=== PATIENT | female | born 1975 | race Caucasian/White ===

== ENCOUNTER 2016-05-26 18:49 | Inpatient (IN) ==
[2016-05-26] MEDS ORDERED: *HR* LORazepam 2 MG/ML VIAL IM PRN ×2 (20:57→21:04)
[2016-05-26] MEDS ORDERED: Haloperidol Lactate 5 MG/ML VIAL IM PRN (20:57)
[2016-05-26] MEDS ORDERED: Mag Hydrox/Al Hydrox/Simeth 30 ML UDC PO PRN (20:57)
[2016-05-26] MEDS ORDERED: Ibuprofen 400 MG TABLET PO PRN (20:57)
[2016-05-26] MEDS ORDERED: MOM Conc 10 ML UD.LIQ PO PRN (20:57)
[2016-05-26] MEDS ORDERED: hydrOXYzine pamoate 25 MG CAPSULE PO PRN (20:57)
[2016-05-26] MEDS ORDERED: *HR* LORazepam 1 MG TABLET PO PRN (21:04)
[2016-05-26] MEDS: Divalproex (12 HR) 500 MG TABLET PO SCH (22:15)
[2016-05-26] MEDS: Nicotine 21 MG PATCH.TD24 TD SCH (22:15)
[2016-05-26] MEDS: traZODone 50 MG TABLET PO PRN (22:15)
[2016-05-26] MEDS: (Loxapine Succinate [Loxapine] 25 MG) PO SCH (22:22)
[2016-05-27] MEDS: Nicotine 21 MG PATCH.TD24 TD SCH (08:56)
[2016-05-27] MEDS: Divalproex (12 HR) 500 MG TABLET PO SCH ×2 (08:57→20:30)
[2016-05-27] MEDS: Vitamin B Complex/Vit C/Vit E 1 EACH TABLET PO SCH (08:57)
[2016-05-27] MEDS: (Loxapine Succinate [Loxapine] 25 MG) PO SCH ×2 (08:58→20:31)
--- NOTE | 2016-05-27 10:50 | Psychiatry History & Physical ---
Date of Encounter: 05/27/16 Time of Encounter: 10:48 History of Present Illness Patient Stated Chief Complaint: "i am seeing ghosts" Medicare Admission Attestation: For traditional Medicare patients the provided hospital inpatient services are reasonable and necessary and in the case of services not specified as inpatient -only under 42 CFR 419.22 (n), that they are appropriately provided as inpatient services in accordance 42 CFR 412.3. For Critical Access Hospital the patient may reasonably be expected to be discharged or transferred to a hospital within 96 hours after admission to the Critical Access Hospital. History of Present Illness: Ms. Montague is a 40 year old female with schizoaffective disorder, bipolar type. Pt is a very poor historian. Her records patient has been having auditory hallucinations of seeing shadows. She admits that she has not been taking her medications and has become very delusional she does not feel safe thinks that there are individuals in her home. She had presented to the hospital a few days prior to be seen but did not calm and at that time and per records she thought people were hiding in the events of her house and talking about her as a result it was attempted to get her to be seen and evaluated but she refused and went home. On evaluation with pt she reports that she is seeing "evil ghosts" she reports this started a "couple days ago, its like a higher power". Pt reports "i have a guilty conscious about what i have done". reports she hasn't been faithful as she hasn't been good. She then goes on to say that "i guess its the things i am seeing". current meds per pt: cogentin depakote "sleeping meds" Past Med Surg Social Fam HX - Past Medical History Medical history: COPD - Past Psychiatric History Psychiatric history: Reports: bipolar, schizophrenia, previous psychiatric hospitalization Past psychiatric history details: outpatient psychiatrist: carol diaz last saw her "been awhile" inpatient hospitalizations: 3 times, last time 2 weeks ago [facility]: denies Past meds: depakote, risperdal, allergic to seroquel - Past Surgical History Surgical History: other - Social History Smoking Status: Current every day smoker Smokeless Tobacco Status: No Alcohol use: none, occasionally Drug use: none Occupational status: disabled Current living situation: Home Activity Level: Independent ambulation Recent Out of Country Travel Within the Last 8 Weeks: No Exposure or Possible Exposure to Illness During Travel: No Medications & Allergies Divalproex (12 HR) [Depakote (12 HR)] 500 mg PO BID 05/26/16 [History] Loxapine Succinate [Loxapine] 25 mg PO BID 05/26/16 [History] Melatonin 3 mg PO HS 05/26/16 [History] OLANZapine [Olanzapine] 20 mg PO HS 05/26/16 [History] Paliperidone Palmitate [Invega Sustenna] 156 mg IJ Q4W 05/26/16 [History] Allergies quetiapine [From Seroquel] Adverse Reaction (Verified 04/17/16 14:28) Hallucinating steroids Allergy (Uncoded 04/17/16 14:28) See Comments Mental Status Exam Patient orientation: Yes Person, Yes Time, Yes Place, Yes Circumstance Level of alertness: Alert Patient appearance: Well Groomed Behavior: nervous, anxious, restless, guarded, suspicious, fearful, distractible Eye contact: Prolonged Contact Mood description: Anxious, Labile Affect description: blunted Speech pattern: Slowed, Delayed, Disorganized, Inappropriate to situation, Monotone Speech volume: Whispering Thought process: Loose Associations, Thought Blocking, Disorganized Thought content: Yes Preoccupation, Yes Paranoid delusion Perceptual disturbances: Yes Visual hallucinations Attention span: Capable of Focused Attention, Capable of Sustained Attention Intelligence estimate: Average Judgment: Poor Insight: Minimal Results - Vital Signs Vital signs: Temp Pulse Resp BP 98.4 F 94 18 110/77 05/27/16 09:00 05/27/16 09:00 05/27/16 09:00 05/27/16 09:00 Assessment and Plan (1) Schizoaffective disorder, bipolar type Current visit: Yes Status: Acute Plan: Admit inpatient for safety and stabilization, Close observation, Encourage participation in unit milieu, Group Therapy, Monitor sleep, Monitor appetite Additional Plan: 05/27: restart home meds. get VPA level, will start cogentin for prevention of EPS sx's will monitor Risks, benefits, side effects, alternatives discussed w/pt: Yes Patient agreeable to treatment: Yes Plans for Post Hospital Care: Home
[2016-05-27] MEDS: traZODone 50 MG TABLET PO PRN (20:30)
[2016-05-27] MEDS: Melatonin 3 MG TABLET PO SCH (20:30)
[2016-05-27] MEDS: OLANZapine 10 MG TAB.RAPDIS PO SCH (20:30)
[2016-05-28] MEDS: Nicotine 21 MG PATCH.TD24 TD SCH (09:26)
[2016-05-28] MEDS: Vitamin B Complex/Vit C/Vit E 1 EACH TABLET PO SCH (09:27)
[2016-05-28] MEDS: Divalproex (12 HR) 500 MG TABLET PO SCH ×2 (09:27→21:01)
[2016-05-28] MEDS: (Loxapine Succinate [Loxapine] 25 MG) PO SCH ×2 (09:28→21:03)
--- NOTE | 2016-05-28 09:35 | Psychiatry Progress Note ---
Date of Encounter: 05/28/16 Time of Encounter: 09:35 Subjective Interval history: Patient seen and evaluated this morning. Patient did not come to see this provider and office of this provider went to patient's room. On approach patient was laying in bed with eyes open. Patient reports that she is still having ongoing issues with having "bad thoughts" and reports she does not know why and continued to exhibit thought blocking and was seen able to be a good historian patient reports no issues with sleep patient has been medication compliant patient was just restarted back on her Zyprexa last night seems as though patient has been noncompliant with medications will continue the Zyprexa for now. Review of Systems Psychiatric: Reports: depression, anxiety, abnormal sleep pattern, suicidal ideation, change in appetite, visual hallucinations, anhedonia, confusion, difficulty concentrating, mood swings Objective: Exam Patient orientation: Yes Person, Yes Time, Yes Place, Yes Circumstance Level of alertness: Alert Patient appearance: Well Groomed Behavior: nervous, anxious, restless, guarded, suspicious, fearful, distractible Eye contact: Prolonged Contact Mood description: Anxious, Labile Affect description: blunted Speech pattern: Slowed, Delayed, Disorganized, Inappropriate to situation, Monotone Speech volume: Whispering Thought process: Loose Associations, Thought Blocking, Disorganized Thought content: Yes Preoccupation, Yes Paranoid delusion Perceptual disturbances: Yes Visual hallucinations Judgment: Poor Insight: Minimal Results - Vital Signs Vital Signs: Temp Pulse Resp BP 98.0 F 78 16 120/81 05/27/16 21:00 05/27/16 21:00 05/27/16 21:00 05/27/16 21:00 Assessment and Plan (1) Schizoaffective disorder, bipolar type Current visit: Yes Status: Acute Additional Plan: 05/28: continue meds. pt had been noncompliant with meds on admission, just restarted yest 05/27: restart home meds. get VPA level, will start cogentin for prevention of EPS sx's will monitor Risks, benefits, side effects, alternatives discussed w/pt: Yes Patient agreeable to treatment: Yes
[2016-05-28] MEDS: *HR* LORazepam 1 MG TABLET PO PRN (12:16)
[2016-05-28] MEDS: OLANZapine 10 MG TAB.RAPDIS PO SCH (21:01)
[2016-05-28] MEDS: Melatonin 3 MG TABLET PO SCH (21:01)
[2016-05-29] MEDS: Divalproex (12 HR) 500 MG TABLET PO SCH ×2 (08:57→21:24)
[2016-05-29] MEDS: Nicotine 21 MG PATCH.TD24 TD SCH (08:57)
[2016-05-29] MEDS: (Loxapine Succinate [Loxapine] 25 MG) PO SCH (08:58)
[2016-05-29] MEDS: Vitamin B Complex/Vit C/Vit E 1 EACH TABLET PO SCH (08:58)
--- NOTE | 2016-05-29 13:14 | Psychiatry Progress Note ---
Date of Encounter: 05/29/16 Time of Encounter: 13:14 Subjective Interval history: Patient is seen for follow-up. Nursing staff report she is having visual hallucinations and paranoia and believes the medication is causing her hallucination. She talks about ghosts and deserving the penalty because she is a bad person. She asked me to review her medication and take off medication that cause her hallucinations. Review of Systems Psychiatric: Reports: depression, anxiety, abnormal sleep pattern, suicidal ideation, change in appetite, visual hallucinations, anhedonia, confusion, difficulty concentrating, mood swings Objective: Exam Patient orientation: Yes Person, Yes Time, Yes Place, Yes Circumstance Level of alertness: Alert Patient appearance: Well Groomed Behavior: cooperative, nervous, anxious, restless, guarded, suspicious, fearful , distractible Psychomotor activity: Normal Eye contact: Prolonged Contact Mood description: Anxious, Labile Affect description: blunted, anxious Speech pattern: Slowed, Delayed, Disorganized, Inappropriate to situation, Monotone Speech volume: Whispering Thought process: Loose Associations, Thought Blocking, Disorganized Thought content: Yes Preoccupation, Yes Paranoid delusion Perceptual disturbances: Yes Visual hallucinations Judgment: Poor Insight: Minimal Results - Vital Signs Vital Signs: Temp Pulse Resp BP 99 F 99 16 111/71 05/29/16 09:00 05/29/16 09:00 05/29/16 09:00 05/29/16 09:00 Assessment and Plan (1) Schizoaffective disorder, bipolar type Current visit: Yes Status: Acute Plan: Continue hospitalization, Close observation, Suicide Precautions per unit protocol, Encourage participation in unit milieu, Group Therapy, Monitor sleep, Monitor appetite Additional Plan: will order Depakote level and Haldol 5 mg by mouth twice a day. Risks, benefits, side effects, alternatives discussed w/pt: Yes Patient agreeable to treatment: Yes
[2016-05-29] MEDS: *HR* LORazepam 1 MG TABLET PO PRN (13:16)
[2016-05-29] MEDS: OLANZapine 10 MG TAB.RAPDIS PO SCH (21:24)
[2016-05-29] MEDS: Melatonin 3 MG TABLET PO SCH (21:25)
[2016-05-30] MEDS: Divalproex (12 HR) 500 MG TABLET PO SCH ×2 (08:42→20:55)
[2016-05-30] MEDS: Nicotine 21 MG PATCH.TD24 TD SCH (08:42)
[2016-05-30] MEDS: Vitamin B Complex/Vit C/Vit E 1 EACH TABLET PO SCH (08:42)
--- NOTE | 2016-05-30 13:15 | Psychiatry Progress Note ---
Date of Encounter: 05/30/16 Time of Encounter: 13:12 Subjective Interval history: Patient seen for follow-up. I review nursing notes and social work notes. Patient's mother reported to nursing staff that patient drink alcohol frequently and forget to take her medication as prescribed. Patient is responding to medication changes from doxepin to Haldol. Her Depakote level is low at 34. She reported this visual hallucinations but experiencing olfactory hallucination, smelling of ashes. The plan would be to maintain her on Haldol Decanoate's if she improves on oral Haldol. She denied any suicidal ideation. Review of Systems Psychiatric: Reports: depression, anxiety, abnormal sleep pattern, suicidal ideation, change in appetite, visual hallucinations, confusion, difficulty concentrating, mood swings Objective: Exam Patient orientation: Yes Person, Yes Time, Yes Place, Yes Circumstance Level of alertness: Alert Patient appearance: Appropriate, Well Groomed Behavior: cooperative, nervous, anxious, restless, guarded, suspicious, fearful , distractible Psychomotor activity: Normal Eye contact: Maintains Eye Contact Mood description: Anxious, Labile Affect description: blunted, anxious Speech pattern: Disorganized, Repetitive, Impoverished Speech volume: Whispering Thought process: Loose Associations, Thought Blocking, Disorganized Thought content: Yes Preoccupation, Yes Paranoid delusion Perceptual disturbances: Yes Visual hallucinations, Yes Olfactory hallucinations Judgment: Poor Insight: Minimal Results - Vital Signs Vital Signs: Temp Pulse Resp BP 98.8 F 84 16 112/78 05/30/16 09:00 05/30/16 09:00 05/30/16 09:00 05/30/16 09:00 - Labs Labs: Laboratory Results - last 24 hr 05/29/16 15:58 Valproic Acid 35.49 L Assessment and Plan (1) Schizoaffective disorder, bipolar type Current visit: Yes Status: Acute Plan: Continue hospitalization, Close observation, Suicide Precautions per unit protocol, Encourage participation in unit milieu, Group Therapy, Monitor sleep, Monitor appetite Risks, benefits, side effects, alternatives discussed w/pt: Yes Patient agreeable to treatment: Yes Consult Discharge Plan - Plan Referrals: NO,PCP [Primary Care Provider] -
[2016-05-30] MEDS: OLANZapine 10 MG TAB.RAPDIS PO SCH (20:54)
[2016-05-30] MEDS: Melatonin 3 MG TABLET PO SCH (20:55)
[2016-05-31] MEDS: Vitamin B Complex/Vit C/Vit E 1 EACH TABLET PO SCH (09:19)
[2016-05-31] MEDS: Divalproex (12 HR) 500 MG TABLET PO SCH ×2 (09:19→20:39)
[2016-05-31] MEDS: Nicotine 21 MG PATCH.TD24 TD SCH (09:19)
--- NOTE | 2016-05-31 13:29 | Psychiatry Progress Note ---
Date of Encounter: 05/31/16 Time of Encounter: 13:10 Subjective Interval history: Patient is here for follow-up. Nursing and social work notes reviewed. Patient reports she is having less visual hallucinations ,less paranoia. She did acknowledge that alcohol and smoking and caffeine can affect her medication. She denies suicidal ideation and denies any side effects from medication. Review of Systems Psychiatric: Reports: depression, anxiety, suicidal ideation, visual hallucinations, confusion, difficulty concentrating, mood swings Objective: Exam Patient orientation: Yes Person, Yes Time, Yes Place, Yes Circumstance Level of alertness: Alert Patient appearance: Appropriate, Well Groomed Behavior: cooperative, nervous, anxious, restless, guarded, suspicious, fearful , distractible Psychomotor activity: Normal Eye contact: Maintains Eye Contact Mood description: Anxious, Labile Affect description: blunted, anxious Speech pattern: Disorganized, Repetitive, Impoverished Speech volume: Whispering Thought process: Thought Blocking Thought content: Yes Preoccupation, Yes Paranoid delusion Perceptual disturbances: Yes Visual hallucinations, Yes Olfactory hallucinations Judgment: Poor Insight: Minimal Results - Vital Signs Vital Signs: Temp Pulse Resp BP 98.3 F 84 16 109/77 05/31/16 09:00 05/31/16 09:00 05/31/16 09:00 05/31/16 09:00 - Drug Levels and Toxicology Drug Levels and Toxicology: Depakote level is 35, below therapeutic. Assessment and Plan (1) Schizoaffective disorder, bipolar type Current visit: Yes Status: Acute Plan: Continue hospitalization, Close observation, Suicide Precautions per unit protocol, Encourage participation in unit milieu, Group Therapy, Monitor sleep, Monitor appetite Risks, benefits, side effects, alternatives discussed w/pt: Yes Patient agreeable to treatment: Yes Consult Discharge Plan - Plan Referrals: NO,PCP [Primary Care Provider] -
[2016-05-31] MEDS: OLANZapine 10 MG TAB.RAPDIS PO SCH (20:39)
[2016-05-31] MEDS: Melatonin 3 MG TABLET PO SCH (20:39)
[2016-06-01] MEDS: Divalproex (12 HR) 500 MG TABLET PO SCH ×2 (08:39→20:46)
[2016-06-01] MEDS: Nicotine 21 MG PATCH.TD24 TD SCH (08:39)
[2016-06-01] MEDS: Vitamin B Complex/Vit C/Vit E 1 EACH TABLET PO SCH (08:39)
[2016-06-01] MEDS: Acetaminophen 325 MG TABLET PO PRN (13:26)
--- NOTE | 2016-06-01 13:52 | Psychiatry Progress Note ---
Date of Encounter: 06/01/16 Time of Encounter: 13:48 Subjective Interval history: Patient is here for follow-up. Nursing and social work notes reviewed. Patient continued to experience visual and olfactory hallucinations, continues to have confucianist preoccupation. Requests for hearing was submitted to probate court to continue hospitalization and complete stabilization. Review of Systems Psychiatric: Reports: depression, anxiety, suicidal ideation, visual hallucinations, confusion, difficulty concentrating, mood swings Objective: Exam Patient orientation: Yes Person, Yes Time, Yes Place, Yes Circumstance Level of alertness: Alert Patient appearance: Appropriate, Well Groomed Behavior: cooperative, nervous, anxious, tearful, restless, guarded, suspicious , fearful, distractible Psychomotor activity: Normal Eye contact: Maintains Eye Contact Mood description: Anxious, Labile Affect description: blunted, anxious Speech pattern: Disorganized, Repetitive, Impoverished Speech volume: Whispering Thought process: Thought Blocking, Disorganized Thought content: Yes Ideas of reference, Yes Preoccupation, Yes Paranoid delusion, Yes Religion delusion, Yes Obsessive thoughts Perceptual disturbances: Yes Visual hallucinations, Yes Olfactory hallucinations Judgment: Poor Insight: Minimal Results - Vital Signs Vital Signs: Temp Pulse Resp BP 97.8 F 83 20 106/76 06/01/16 09:00 06/01/16 09:00 06/01/16 09:00 06/01/16 09:00 Assessment and Plan (1) Schizoaffective disorder, bipolar type Current visit: Yes Status: Acute Plan: Continue hospitalization, Close observation, Suicide Precautions per unit protocol, Encourage participation in unit milieu, Group Therapy, Monitor sleep, Monitor appetite Additional Plan: Will add Zoloft 50 mg to help with depressive symptoms also we will increase Haldol to 10 mg twice daily to improve patient's response. We will continue to monitor. Risks, benefits, side effects, alternatives discussed w/pt: Yes Patient agreeable to treatment: Yes Consult Discharge Plan - Plan Referrals: NO,PCP [Primary Care Provider] -
[2016-06-01] MEDS: OLANZapine 10 MG TAB.RAPDIS PO SCH (20:46)
[2016-06-01] MEDS: Melatonin 3 MG TABLET PO SCH (20:46)
[2016-06-02] MEDS: Nicotine 21 MG PATCH.TD24 TD SCH (09:05)
[2016-06-02] MEDS: Vitamin B Complex/Vit C/Vit E 1 EACH TABLET PO SCH (09:06)
[2016-06-02] MEDS: Divalproex (12 HR) 500 MG TABLET PO SCH ×2 (09:06→20:49)
--- NOTE | 2016-06-02 12:07 | Psychiatry Progress Note ---
Date of Encounter: 06/02/16 Time of Encounter: 12:35 Subjective Interval history: Patient is here for follow-up. Staff report that she is seclusive most of the time. She participates in some activities, she continued to be suspicious and paranoid and confused. She is compliant with medication and still reports visual and olfactory hallucinations but this frequent. She tells me I wanted to be confident. Review of Systems Psychiatric: Reports: depression, anxiety, suicidal ideation, visual hallucinations, confusion, difficulty concentrating, mood swings Objective: Exam Patient orientation: Yes Person, Yes Time, Yes Place, Yes Circumstance Level of alertness: Alert Patient appearance: Appropriate, Well Groomed Behavior: cooperative, nervous, anxious, tearful, restless, guarded, suspicious , fearful, distractible Psychomotor activity: Normal Eye contact: Maintains Eye Contact Mood description: Depressed, Anxious, Labile Affect description: blunted, anxious Speech pattern: Disorganized, Repetitive, Impoverished Speech volume: Whispering Thought process: Thought Blocking, Disorganized Thought content: Yes Ideas of reference, Yes Preoccupation, Yes Paranoid delusion, Yes Pentecostalism delusion, Yes Obsessive thoughts Perceptual disturbances: Yes Visual hallucinations, Yes Olfactory hallucinations Judgment: Poor Insight: Minimal Results - Vital Signs Vital Signs: Temp Pulse Resp BP 97.8 F 87 16 118/74 06/02/16 09:00 06/02/16 09:00 06/02/16 09:00 06/02/16 09:00 Assessment and Plan (1) Schizoaffective disorder, bipolar type Current visit: Yes Status: Acute Plan: Continue hospitalization, Close observation, Suicide Precautions per unit protocol, Encourage participation in unit milieu, Group Therapy, Monitor sleep, Monitor appetite Risks, benefits, side effects, alternatives discussed w/pt: Yes Patient agreeable to treatment: Yes Consult Discharge Plan - Plan Referrals: Fermin Newman [facility] [place] [Outside] - 06/12/16 10:00 am (The above appointment is with Marnie. You will also see Karime Contreras the same day, 2016 at 10:30am.)
[2016-06-02] MEDS: OLANZapine 10 MG TAB.RAPDIS PO SCH (20:50)
[2016-06-02] MEDS: Melatonin 3 MG TABLET PO SCH (20:50)
[2016-06-02] MEDS: Acetaminophen 325 MG TABLET PO PRN (23:08)
[2016-06-03] MEDS: Vitamin B Complex/Vit C/Vit E 1 EACH TABLET PO SCH (08:42)
[2016-06-03] MEDS: Divalproex (12 HR) 500 MG TABLET PO SCH ×2 (08:42→20:52)
[2016-06-03] MEDS: Nicotine 21 MG PATCH.TD24 TD SCH (08:42)
--- NOTE | 2016-06-03 11:59 | Psychiatry Progress Note ---
Date of Encounter: 06/03/16 Time of Encounter: 09:00 Subjective Interval history: Patient seen today for follow-up of psychosis with paranoia and mood lability. She does appear more organized today and is able to communicate with staff to get her needs met. However, when attempting to discuss the patient's illness with her she continues to be evasive and guarded. She does admit to being paranoid and confused upon arrival to the hospital. However, discussing her medications, the patient reports "they are just practicing medicine." She goes on to state that she has "a lot of medicines at home too." She does state that she will take her meds when she leaves the hospital but she could not verbalize why this is important. Patient does live alone. At that point she goes on to talk about how "I have been a bad person and I need to atone for my poor character." She reports sleeping well. She is not aware of any side effects of her current meds. She has been more cooperative and appropriate with staff on the unit. Review of Systems Psychiatric: Reports: depression, anxiety, confusion, difficulty concentrating, irritability, mood swings. Denies: suicidal ideation, visual hallucinations Objective: Exam Patient orientation: Yes Person, Yes Time, Yes Place, Yes Circumstance Level of alertness: Alert Patient appearance: Appropriate, Well Groomed Behavior: restless, guarded, distractible Psychomotor activity: Normal Eye contact: Maintains Eye Contact Mood description: Euthymic/stable Affect description: blunted, flat, incongruent with mood Speech pattern: Slowed, Repetitive, Impoverished Speech volume: Normal Thought process: Slowed Thinking Thought content: No Suicidal ideation, No Homicidal ideation, Yes Ideas of reference, Yes Paranoid delusion Perceptual disturbances: Yes Auditory hallucinations Judgment: Poor Insight: Minimal Results - Vital Signs Vital Signs: Temp Pulse Resp BP 97.4 F L 87 16 99/71 06/03/16 09:00 06/03/16 09:00 06/03/16 09:00 06/03/16 09:00 Assessment and Plan (1) Schizoaffective disorder, bipolar type Current visit: Yes Status: Acute Plan: Continue hospitalization, Close observation, Suicide Precautions per unit protocol, Encourage participation in unit milieu, Group Therapy, Monitor sleep, Monitor appetite Additional Plan: Patient is currently taking: Haldol and Zyprexa as well as Zoloft. She does appear to be doing well in terms of her symptoms although she still has some paranoia and is very guarded. We will hold on adding more medications for now and consider cross titrating so that she is not on 2 antipsychotics. Continue to monitor sleep and appetite and her interaction with peers and staff. At this point patient does have a probate hearing scheduled. If she continues to improve consider discharge prior to that. Risks, benefits, side effects, alternatives discussed w/pt: Yes Patient agreeable to treatment: Yes Consult Discharge Plan - Plan Referrals: Fermin Sainz [Outside] - 06/12/16 10:00 am (The above appointment is with Marnie. You will also see Karime Contreras the same day, 2016 at 10:30am.)
[2016-06-03] MEDS: Acetaminophen 325 MG TABLET PO PRN (14:52)
[2016-06-03] MEDS: Melatonin 3 MG TABLET PO SCH (20:51)
[2016-06-03] MEDS: OLANZapine 10 MG TAB.RAPDIS PO SCH (20:52)
[2016-06-04] MEDS: Divalproex (12 HR) 500 MG TABLET PO SCH (08:26)
[2016-06-04] MEDS: Nicotine 21 MG PATCH.TD24 TD SCH (08:27)
[2016-06-04] MEDS: Vitamin B Complex/Vit C/Vit E 1 EACH TABLET PO SCH (08:27)
[2016-06-04 09:02] VITALS: BP 103/73
--- NOTE | 2016-06-04 13:18 | Discharge Summary ---
Date of Encounter: 06/04/16 Time of Encounter: 12:00 Diagnosis - Discharge Diagnosis (1) Schizoaffective disorder, bipolar type Priority: Primary Status: Acute Medications - Discharge Medications Prescriptions: Divalproex (12 HR) [Depakote (12 HR)] 500 mg PO BID #60 tablet. Melatonin 3 mg PO HS #30 tablet OLANZapine [Zyprexa Zydis] 20 mg PO HS #60 tab.rapdis Sertraline [Zoloft] 50 mg PO DAILY #30 tablet Divalproex (12 HR) [Depakote (12 HR)] 500 mg PO BID #60 tablet. 06/04/16 [Rx] Melatonin 3 mg PO HS #30 tablet 06/04/16 [Rx] OLANZapine [Zyprexa Zydis] 20 mg PO HS #60 tab.rapdis 06/04/16 [Rx] Sertraline [Zoloft] 50 mg PO DAILY #30 tablet 06/04/16 [Rx] Vitamin B Complex/Vit C/Vit E [Stresstab] 1 each PO DAILY tablet 06/04/16 [Rx] Allergies quetiapine [From Seroquel] Adverse Reaction (Verified 04/17/16 14:28) Hallucinating steroids Allergy (Uncoded 04/17/16 14:28) See Comments Results Procedures and tests throughout hospitalization: Completed Lab Orders Category Date Time Status Valproate Routine Lab 05/29/16 15:58 Completed Provider Date of admission: 05/26/16 18:49 Primary care physician: PCP NO Consults: 05/26/16 19:13 Consult to Pastoral Services [CONS] Routine Comment: Discharging clinician: Odessa Fermin Assessment and Plan - Patient/Caregiver Discharge Instructions Activity: resume usual activities as tolerated Diet: regular diet - Follow up Plan Follow up with: Fermin Sainz [Outside] - 06/12/16 10:00 am (The above appointment is with Marnie. You will also see Karime Contreras the same day, 2016 at 10:30am.) Functional capacity at discharge: independent ambulation Overall status at discharge: Stable Disposition: Home, Self-Care Hospital Course Hospital course: Ms. Montague is a 40 year old female with history of schizoaffective disorder who presented to the hospital psychotic and paranoid. She was admitted for psychiatric stabilization. Patient was incorporated into the therapeutic milieu and offer group and individual as well as recreational therapy. She was placed on suicide precautions and close observation per unit protocol. Patient was restarted on Depakote 500 mg by mouth twice a day. She was also placed on Zyprexa and titrated up to 20 mg by mouth daily. Throughout the course of the hospital stay the patient's mood did stabilize. She started to show improvement in her thought content and her organization. Patient did have a little bit of trouble understanding why she needed the medication. However, patient did note that she started to have able. Since she took her medicine. We discussed that the patient should probably dispose of her previous prescription so he does not get confusing. We also discussed that patient should not be using drugs or alcohol while taking her psychiatric medications. Patient has been able to verbalize needs to staff and she reports she is sleeping better. Staff did contact patient's mother who reported that the patient is back to baseline. At the time of discharge patient denied suicidal or homicidal ideation, intent, or plan. She did not appear to be responding to internal stimuli. She denied obsessions, delusions, paranoia. She is going to follow up with her outpatient provider and continue meds as prescribed. She is discharged in stable condition. Does patient wish to continue nicotine replacement upon disc: No - Time Spent with Patient Total time spent providing and/or coordinating discharge services: Greater than 30 minutes Quality - Multiple Antipsychotics Patient discharged on 2 or more antipsychotic medications: No Procedures - Procedures Procedures: Medication Management, Crisis Stabilization, Supportive Therapy, Group Therapy, Psychoeducational Therapy Mental Status Exam - Mental Status Exam Patient orientation: Yes Person, Yes Time, Yes Place, Yes Circumstance Level of alertness: Alert Patient appearance: Appropriate, Well Groomed Behavior: calm, cooperative Psychomotor activity: Normal Eye contact: Maintains Eye Contact Mood description: Euthymic/stable Affect description: congruent with mood Speech pattern: Normal rate, Normal rhythm, Normal tone Speech Volume: Normal Thought process: Intact Thought Content: No Suicidal ideation, No Homicidal ideation Perceptual Disturbances: No Auditory hallucinations, No Visual hallucinations Judgment: Limited Insight: Partial
== END 2016-06-04 14:40 | disposition home or self-care (01) | DRG 885 ==
LOC: 1ANU 18:49 → SUATTDRO 18:49 → 1ANU 19:39
PROVIDERS: ADMIT Psychiatry & Neurology Psychiatry; ATTEND Psychiatry & Neurology Psychiatry

== ENCOUNTER 2019-12-20 01:46 | Inpatient (IN) ==
[2019-12-20] MEDS ORDERED: *HR* LORazepam 1 MG TABLET PO PRN (03:25)
[2019-12-20] MEDS ORDERED: Haloperidol Lactate 5 MG/ML VIAL IM PRN (03:25)
[2019-12-20] MEDS ORDERED: haloperidoL 5 MG TABLET PO PRN (03:25)
[2019-12-20] MEDS ORDERED: QUEtiapine Fumarate 25 MG TABLET PO PRN (03:25)
[2019-12-20] MEDS ORDERED: MOM Conc 10 ML UD.LIQ PO PRN (03:25)
[2019-12-20] MEDS ORDERED: Acetaminophen 325 MG TABLET PO PRN (03:25)
[2019-12-20] MEDS ORDERED: PALIPERIDONE PALMITATE 156 MG/ML SYRINGE IM SCH (03:45)
[2019-12-20] MEDS ORDERED: *HR* LORazepam 2 MG/ML VIAL IM PRN (04:00)
[2019-12-20] MEDS: Nicotine 21 MG PATCH.TD24 TD SCH (09:30)
[2019-12-21] MEDS: hydrOXYzine pamoate 25 MG CAPSULE PO PRN (02:09)
[2019-12-21] MEDS: Nicotine 21 MG PATCH.TD24 TD SCH ×2 (08:53→13:45)
[2019-12-21] MEDS: haloperidoL 5 MG TABLET PO SCH (20:23)
[2019-12-21] MEDS ORDERED: traZODone 50 MG TABLET PO PRN (20:28)
[2019-12-22] MEDS: Nicotine 21 MG PATCH.TD24 TD SCH (08:49)
[2019-12-22] MEDS: haloperidoL 5 MG TABLET PO SCH (20:13)
[2019-12-23] MEDS: hydrOXYzine pamoate 25 MG CAPSULE PO PRN (00:39)
[2019-12-23] MEDS: Nicotine 21 MG PATCH.TD24 TD SCH (09:01)
[2019-12-23 09:34] VITALS: BP 120/79
== END 2019-12-23 12:05 | disposition home or self-care (01) | DRG 885 ==
LOC: EMEROOARM 01:46 → 1ANU 03:23 → SUATTDRO 03:23 → 1ANU 04:18
PROVIDERS: ADMIT Psychiatry & Neurology Psychiatry; ATTEND Psychiatry & Neurology Forensic Psychiatry

== ENCOUNTER 2020-01-07 14:45 | Inpatient (IN) ==
[2020-01-07] MEDS ORDERED: Ibuprofen 800 MG TABLET PO PRN (16:16)
[2020-01-07] MEDS ORDERED: MOM Conc 10 ML UD.LIQ PO PRN (16:18)
[2020-01-07] MEDS ORDERED: haloperidoL 5 MG TABLET PO PRN (16:18)
[2020-01-07] MEDS ORDERED: traZODone 50 MG TABLET PO PRN (16:18)
[2020-01-07] MEDS ORDERED: Haloperidol Lactate 5 MG/ML VIAL IM PRN (16:18)
[2020-01-07] MEDS ORDERED: hydrOXYzine pamoate 25 MG CAPSULE PO PRN (16:18)
[2020-01-07] MEDS ORDERED: Acetaminophen 325 MG TABLET PO PRN (16:18)
[2020-01-07] MEDS ORDERED: *HR* LORazepam 2 MG/ML VIAL IM PRN (16:18)
[2020-01-07] MEDS ORDERED: Mag Hydrox/Al Hydrox/Simeth 30 ML UDC PO PRN (16:18)
[2020-01-07] MEDS ORDERED: *HR* LORazepam 1 MG TABLET PO PRN (16:18)
[2020-01-07] MEDS: Nicotine 21 MG PATCH.TD24 TD SCH (18:07)
[2020-01-07] MEDS: haloperidoL 5 MG TABLET PO SCH (22:04)
[2020-01-08] MEDS: Nicotine 21 MG PATCH.TD24 TD SCH (09:18)
[2020-01-08] MEDS: Ibuprofen 800 MG TABLET PO PRN ×2 (11:06→20:54)
[2020-01-08] MEDS: haloperidoL 5 MG TABLET PO SCH (21:56)
[2020-01-09] MEDS: Nicotine 21 MG PATCH.TD24 TD SCH (08:59)
[2020-01-09 09:02] VITALS: BP 123/87
[2020-01-09] MEDS: Ibuprofen 800 MG TABLET PO PRN (09:50)
[2020-01-14] MEDS ORDERED: PALIPERIDONE PALMITATE 156 MG/ML SYRINGE IM SCH (16:30)
== END 2020-01-09 13:15 | disposition home or self-care (01) | DRG 885 ==
LOC: EMEROOARM 14:45 → 1ANU 15:51
PROVIDERS: ADMIT Psychiatry & Neurology Psychiatry; ATTEND Psychiatry & Neurology Psychiatry

== ENCOUNTER 2021-11-12 07:09 | Inpatient (IN) ==
[2021-11-12 10:48] LABS: Influenza A PCR Negative (Negative); Influenza B PCR Negative (Negative); Resp. Syncytial Virus PCR Negative (Negative)
[2021-11-12 11:36] LABS: SARS-CoV-2 by PCR (In House) Negative (Negative)
[2021-11-12] MEDS ORDERED: *HR* LORazepam 2 MG/ML VIAL IM PRN (11:52)
[2021-11-12] MEDS ORDERED: *HR* LORazepam 1 MG TABLET PO PRN (11:52)
[2021-11-12] MEDS ORDERED: haloperidoL 5 MG TABLET PO PRN (11:52)
[2021-11-12] MEDS ORDERED: Haloperidol Lactate 5 MG/ML VIAL IM PRN (11:52)
[2021-11-12] MEDS ORDERED: Mag Hydrox/Al Hydrox/Simeth 30 ML UDC PO PRN (13:44)
[2021-11-12] MEDS ORDERED: MOM Conc 10 ML UD.LIQ PO PRN (13:44)
[2021-11-12] MEDS: Nicotine 14 MG PATCH.TD24 TD SCH (18:31)
[2021-11-12] MEDS: Ibuprofen 800 MG TABLET PO PRN (18:35)
[2021-11-12] MEDS: traZODone 50 MG TABLET PO PRN (22:55)
[2021-11-12] MEDS: hydrOXYzine pamoate 25 MG CAPSULE PO PRN (22:55)
[2021-11-13] MEDS: Nicotine 14 MG PATCH.TD24 TD SCH (10:07)
[2021-11-13] MEDS: Ibuprofen 800 MG TABLET PO PRN ×2 (10:11→21:43)
[2021-11-13] MEDS: Perphenazine 2 MG TABLET PO SCH (21:43)
[2021-11-13] MEDS: traZODone 50 MG TABLET PO PRN (23:42)
[2021-11-14] MEDS: Perphenazine 2 MG TABLET PO SCH ×2 (09:51→21:04)
[2021-11-14] MEDS: Nicotine 14 MG PATCH.TD24 TD SCH (09:52)
[2021-11-14] MEDS: Ibuprofen 800 MG TABLET PO PRN ×2 (09:54→18:11)
[2021-11-14] MEDS: Acetaminophen 325 MG TABLET PO PRN (21:04)
[2021-11-14] MEDS: traZODone 50 MG TABLET PO PRN ×2 (21:04→23:20)
[2021-11-14] MEDS: Carbamide Peroxide 150 DROP/15 ML BOTTLE RIGHT EAR SCH (21:44)
[2021-11-15] MEDS: Ibuprofen 800 MG TABLET PO PRN ×2 (01:53→14:37)
[2021-11-15] MEDS: Nicotine 14 MG PATCH.TD24 TD SCH (09:03)
[2021-11-15] MEDS: Perphenazine 2 MG TABLET PO SCH (09:05)
[2021-11-15] MEDS: Carbamide Peroxide 150 DROP/15 ML BOTTLE RIGHT EAR SCH (09:06)
[2021-11-15] MEDS: Amoxicillin 500 MG CAPSULE PO SCH ×2 (15:09→20:32)
[2021-11-15] MEDS: Acetaminophen 325 MG TABLET PO PRN (15:12)
[2021-11-15] MEDS: CarBAMazepine XR (12 hr) 100 MG TAB PO SCH (18:19)
[2021-11-15] MEDS: OLANZapine 10 MG TAB.RAPDIS PO SCH (20:32)
[2021-11-15] MEDS: hydrOXYzine pamoate 25 MG CAPSULE PO PRN (20:32)
[2021-11-15] MEDS: traZODone 50 MG TABLET PO PRN (20:34)
[2021-11-16] MEDS: CarBAMazepine XR (12 hr) 100 MG TAB PO SCH ×2 (08:34→18:03)
[2021-11-16] MEDS: Nicotine 14 MG PATCH.TD24 TD SCH ×2 (08:34→09:22)
[2021-11-16] MEDS: Amoxicillin 500 MG CAPSULE PO SCH ×3 (08:34→20:36)
[2021-11-16] MEDS: Ibuprofen 800 MG TABLET PO PRN (18:33)
[2021-11-16] MEDS: OLANZapine 10 MG TAB.RAPDIS PO SCH (20:36)
[2021-11-16] MEDS: hydrOXYzine pamoate 25 MG CAPSULE PO PRN (20:37)
[2021-11-16] MEDS: traZODone 50 MG TABLET PO PRN (20:37)
[2021-11-17] MEDS: CarBAMazepine XR (12 hr) 100 MG TAB PO SCH ×2 (05:49→17:36)
[2021-11-17] MEDS: Nicotine 14 MG PATCH.TD24 TD SCH (08:50)
[2021-11-17] MEDS: Amoxicillin 500 MG CAPSULE PO SCH ×3 (08:50→20:19)
[2021-11-17] MEDS: Ciprofloxacin/Dex *EAR* Susp 7.5 ML BOTTLE RIGHT EAR SCH ×4 (11:52→20:19)
[2021-11-17] MEDS: Ibuprofen 800 MG TABLET PO PRN (17:35)
[2021-11-17] MEDS: OLANZapine 10 MG TAB.RAPDIS PO SCH (20:19)
[2021-11-18] MEDS: CarBAMazepine XR (12 hr) 100 MG TAB PO SCH (06:08)
[2021-11-18 09:05] VITALS: BP 109/80; PULSE 86; TEMP 97.7; O2SAT 91
[2021-11-18] MEDS: Nicotine 14 MG PATCH.TD24 TD SCH (09:05)
[2021-11-18] MEDS: Amoxicillin 500 MG CAPSULE PO SCH (09:06)
[2021-11-18] MEDS: Ciprofloxacin/Dex *EAR* Susp 7.5 ML BOTTLE RIGHT EAR SCH (09:06)
[2021-11-18 09:58] LABS: Basophils # 0.1 K/mcL (0.0-0.2); Basophils % 0.7 %; Eosinophils # 0.2 K/mcL (0.0-0.6); Eosinophils % 2.7 %; Hematocrit 45.4 % (35.3-44.9); Hemoglobin 15.4 g/dL (11.5-15.4); Immature Granulocytes % 0.1 % (0-4); Lymphocytes # 1.5 K/mcL (0.6-4.6); Lymphocytes % 19.1 %; Mean Corpuscular HGB Conc 33.9 g/dL (31.6-35.5); Mean Corpuscular Hemoglobin 31.2 pg (28.0-33.3); Mean Corpuscular Volume 92.1 fL (83.0-100.0); Mean Platelet Volume 10.2 fL (9.4-12.4); Monocytes # 0.7 K/mcL (0.0-1.3); Monocytes % 8.5 %; Neutrophils # 5.3 K/mcL (1.6-8.9); Platelet Count 270 K/mcL (140-400); Red Blood Count 4.93 M/mcL (3.82-4.97); Red Cell Distribution Width 12.9 % (11.5-14.5); Segmented Neutrophils % 68.9 %; White Blood Count 7.6 K/mcL (4.3-11.1)
[2021-11-18 10:10] LABS: Albumin 4.4 g/dL (3.5-5.7); Albumin/Globulin Ratio 1.8 (1.1-2.2); Bilirubin,Total 0.5 mg/dL (0.3-1.0); Calcium 9.2 mg/dL (8.6-10.3); Globulin 2.5 g/dL (2.4-3.5); Potassium 3.5 mEq/L (3.5-5.1); Total Protein 6.9 g/dL (6.4-8.9)
== END 2021-11-18 15:00 | disposition home or self-care (01) | DRG 885 ==
LOC: EMEROOARM 07:09 → 1ANU 12:19 → SUATTDRO 12:19 → 1ANU 13:05
PROVIDERS: ADMIT Psychiatry & Neurology Psychiatry; ATTEND Psychiatry & Neurology Forensic Psychiatry

== ENCOUNTER 2022-01-03 06:35 | Inpatient (IN) ==
[2022-01-03 14:01] LABS: Influenza A PCR Negative (Negative); Influenza B PCR Negative (Negative); Resp. Syncytial Virus PCR Negative (Negative); SARS-CoV-2 by PCR (In House) Negative (Negative)
[2022-01-03] MEDS ORDERED: haloperidoL 5 MG TABLET PO PRN (14:14)
[2022-01-03] MEDS ORDERED: Haloperidol Lactate 5 MG/ML VIAL IM PRN (14:14)
[2022-01-03] MEDS ORDERED: *HR* LORazepam 1 MG TABLET PO PRN (14:14)
[2022-01-03] MEDS ORDERED: *HR* LORazepam 2 MG/ML VIAL IM PRN (14:14)
[2022-01-03] MEDS ORDERED: hydrOXYzine pamoate 25 MG CAPSULE PO PRN (14:14)
[2022-01-03] MEDS: Nicotine 21 MG PATCH.TD24 TD SCH (19:01)
[2022-01-03] MEDS: traZODone 50 MG TABLET PO PRN (20:57)
[2022-01-04] MEDS: Nicotine 21 MG PATCH.TD24 TD SCH (08:51)
[2022-01-04] MEDS ORDERED: Mag Hydrox/Al Hydrox/Simeth 30 ML UDC PO PRN (14:39)
[2022-01-04] MEDS ORDERED: MOM Conc 10 ML UD.LIQ PO PRN (14:39)
[2022-01-04] MEDS: Acetaminophen 325 MG TABLET PO PRN (17:30)
[2022-01-04] MEDS: Ciprofloxacin/Dex *EAR* Susp 7.5 ML BOTTLE RIGHT EAR SCH (20:30)
[2022-01-04] MEDS: traZODone 50 MG TABLET PO PRN (20:37)
[2022-01-05] MEDS: Ciprofloxacin/Dex *EAR* Susp 7.5 ML BOTTLE RIGHT EAR SCH ×2 (09:28→21:07)
[2022-01-05] MEDS: Nicotine 21 MG PATCH.TD24 TD SCH (09:28)
[2022-01-05] MEDS ORDERED: Paliperidone Palmitate 234 MG/1.5 ML SYRINGE IM SCH (10:00)
[2022-01-05] MEDS: traZODone 50 MG TABLET PO PRN (23:31)
[2022-01-06] MEDS: Ciprofloxacin/Dex *EAR* Susp 7.5 ML BOTTLE RIGHT EAR SCH ×2 (08:53→20:49)
[2022-01-06] MEDS: Nicotine 21 MG PATCH.TD24 TD SCH ×2 (10:46→11:24)
[2022-01-06] MEDS: Acetaminophen 325 MG TABLET PO PRN ×2 (13:40→20:50)
[2022-01-07] MEDS: Acetaminophen 325 MG TABLET PO PRN ×3 (06:16→20:50)
[2022-01-07] MEDS: Nicotine 21 MG PATCH.TD24 TD SCH (09:04)
[2022-01-07] MEDS: Ciprofloxacin/Dex *EAR* Susp 7.5 ML BOTTLE RIGHT EAR SCH ×2 (09:04→20:49)
[2022-01-07] MEDS: Ibuprofen 400 MG TABLET PO PRN (17:15)
[2022-01-07] MEDS: traZODone 50 MG TABLET PO PRN (20:50)
[2022-01-08] MEDS: Ibuprofen 400 MG TABLET PO PRN ×3 (06:34→21:39)
[2022-01-08] MEDS: Nicotine 21 MG PATCH.TD24 TD SCH (07:49)
[2022-01-08] MEDS: Ciprofloxacin/Dex *EAR* Susp 7.5 ML BOTTLE RIGHT EAR SCH ×2 (07:50→21:39)
[2022-01-08] MEDS: Acetaminophen 325 MG TABLET PO PRN (14:48)
[2022-01-08] MEDS: traZODone 50 MG TABLET PO PRN (21:39)
[2022-01-09] MEDS: Acetaminophen 325 MG TABLET PO PRN (04:34)
[2022-01-09] MEDS ORDERED: Paliperidone Palmitate 156 MG/ML SYRINGE IM SCH (08:15)
[2022-01-09] MEDS: Nicotine 21 MG PATCH.TD24 TD SCH (08:16)
[2022-01-09] MEDS: Ciprofloxacin/Dex *EAR* Susp 7.5 ML BOTTLE RIGHT EAR SCH ×2 (08:16→20:52)
[2022-01-09] MEDS: Ibuprofen 400 MG TABLET PO PRN (18:53)
[2022-01-09] MEDS: traZODone 50 MG TABLET PO PRN (20:52)
[2022-01-10 09:11] VITALS: BP 106/82; PULSE 94; TEMP 98.2; O2SAT 95
[2022-01-10] MEDS: Ciprofloxacin/Dex *EAR* Susp 7.5 ML BOTTLE RIGHT EAR SCH (09:18)
[2022-01-10] MEDS: Nicotine 21 MG PATCH.TD24 TD SCH (09:18)
== END 2022-01-10 14:30 | disposition home or self-care (01) | DRG 885 ==
LOC: EMEROOARM 06:35 → 1ANU 14:10
PROVIDERS: ADMIT Psychiatry & Neurology Psychiatry; ATTEND Psychiatry & Neurology Psychiatry